=== PATIENT | male | born 1945 | race Caucasian/White ===

== ENCOUNTER 2016-12-07 20:58 | Observation (INO) | payer MEDICARE ==
[~2016-12-07] VITALS: Ht 167.6 cm; Wt 72.9 kg
[~2016-12-07 20:58] MED LIST: ASPI-664 PO; ATEN50TA PO; BENA20TA65 PO; COLC0.6T6 PO; GLIM2TAB PO; GLYB5TAB3 PO; HYDR12.58 PO; MTF1000T PO; PANT40TA3 PO; PERCOCET PO; ROSU20TA PO; SITA100T8 PO
[2016-12-08] VITALS (11 sets, daily range): BP systolic 129–166; BP diastolic 62–79; PULSE 40–55; RESP 16–21; TEMP 97.5; Ht 167.6 cm; Wt 72.9 kg
[2016-12-08] MEDS ORDERED: morphine 4 MG/ML VIAL IV STA (00:31)
[2016-12-08] MEDS ORDERED: ONDANSETRON 4 MG INJ IV STA (00:31)
[2016-12-08] MEDS ORDERED: ASPIRIN 325 MG TAB PO STA (00:31)
[2016-12-08 01:25] LABS: BASOPHIL # 0.1 10^3/ul (0.0-0.1); BASOPHILS % 0.7 % (0.0-2.0); EOSINOPHILS # 0.8 10^3/ul (0.0-0.5); EOSINOPHILS % 11.2 % (0.0-7.0); HEMATOCRIT 32.4 % (42.0-52.0); LYMPHOCYTES # 2.1 10^3/ul (0.8-2.9); LYMPHOCYTES % 30.9 % (15.0-51.0); MEAN CORPUSCULAR HEMOGLOBIN 31.3 pg (29.0-33.0); MEAN PLATELET VOLUME 11.5 fl (7.4-10.4); MONOCYTE # 0.8 10^3/ul (0.3-0.9); MONOCYTES % 12.1 % (0.0-11.0); NEUTROPHILS % 44.7 % (39.0-77.0); PLATELET COUNT 187 10^3/UL (140-415); RED BLOOD COUNT 3.52 10^6/ul (4.70-6.10); RED CELL DISTRIBUTION WIDTH 14.7 % (11.5-14.5); WHITE BLOOD COUNT 6.7 10^3/ul (4.8-10.8)
--- NOTE | 2016-12-08 01:34 | RADRPT ---
PROCEDURE: XR Chest. CLINICAL INDICATION: Chest pain. TECHNIQUE: 2 frontal views of the chest. COMPARISON: Plain film chest dated 01/23/2015. FINDINGS: Mild cardiomegaly. Mild elevation right hemidiaphragm. There is mild atelectasis at the right mid lung and lung base. The left lung is clear. The lungs are clear. No signs of pleural fluid or pneu mothorax are seen. The osseous structures and soft tissues are unremarkable. IMPRESSION: Mild atelectasis at the right mid lung and lung base. RPTAT: [facility] Physician Raven Date Time Electronically viewed and signed by Physician Raven on 12/08/2016 01:34 RS/
[2016-12-08 01:42] LABS: ALANINE AMINOTRANSFERASE 46 IU/L (13-69); ALBUMIN/GLOBULIN RATIO 1.29; ALKALINE PHOSPHATASE 74 IU/L (42-121); ANION GAP 21 (8-16); ASPARTATE AMINO TRANSFERASE 36 IU/L (15-46); BILIRUBIN,INDIRECT 0.7 mg/dl (0-1.1); BILIRUBIN,TOTAL 0.7 mg/dl (0.2-1.3); BLOOD UREA NITROGEN 24 mg/dl (7-20); CALCIUM 9.2 mg/dl (8.4-10.2); CARBON DIOXIDE 24 mmol/L (21-31); CHLORIDE 102 mmol/L (97-110); CREATININE 1.63 mg/dl (0.61-1.24); GLUCOSE 96 mg/dl (70-220); POTASSIUM 4.2 mmol/L (3.5-5.1); SODIUM 143 mmol/L (135-144); TOTAL PROTEIN 7.1 g/dl (6.1-8.1)
[2016-12-08 01:58] LABS: B-TYPE NATRIURETIC PEPTIDE 497 PG/ML (0-125)
[2016-12-08 02:00] LABS: TROPONIN-I < 0.012 ng/ml (0.00-0.12)
--- NOTE | 2016-12-08 03:41 | ERA ---
ER Documentation Chief Complaint Date/Time DATE: 12/08/16 TIME: 03:40 Chief Complaint CHEST PAIN RADIATES TO LEFT SHOULDER, COLD "CLAMMY" STARTED YESTERDAY HPI 71-year-old male with mid sternal chest pain that radiates to his left shoulder. It first started yesterday. Getting progressively worse. Less for 15 minutes. With associated diaphoresis. Pain mild to moderate intensity. No other current complaints. ROS All systems reviewed and are negative except as per history of present illness. Medications Home Meds Active Scripts Oxycodone Hcl/Acetaminophen (Percocet) 1 Tab Tab, 1 TAB PO Q6H Y for PAIN LEVEL 6-10, #20 TAB Prov:DEL DURHAM 01/26/15 Colchicine* (Colcrys*) 0.6 Mg Tablet, 0.6 MG PO BID for 3 Days, TAB Prov:DEL DURHAM 01/26/15 Reported Medications Hydrochlorothiazide* (Hydrochlorothiazide*) 12.5 Mg Tablet, 12.5 MG PO DAILY, TAB 01/23/15 Aspirin* (Aspirin* (EC)) 81 Mg Tablet.dr, 81 MG PO DAILY, TAB 01/23/15 Glyburide* (Glyburide*) 5 Mg Tablet, 5 MG PO DAILY, TAB 01/23/15 Glimepiride* (Glimepiride*) 2 Mg Tablet, 2 MG PO DAILY, TAB 01/23/15 Pantoprazole* (Protonix*) 40 Mg Tablet.dr, 40 MG PO DAILY, TAB 01/23/15 Metformin* (Glucophage*) 1,000 Mg Tablet, 1000 MG PO BID, TAB 01/23/15 Benazepril Hcl* (Lotensin*) 20 Mg Tablet, 20 MG PO DAILY, TAB 01/23/15 Atenolol* (Atenolol*) 50 Mg Tablet, 50 MG PO DAILY, TAB 01/23/15 Sitagliptin* (Januvia*) 100 Mg Tablet, 100 MG PO DAILY 02/26/13 Rosuvastatin Calcium* (Crestor*) 20 Mg Tablet, 20 MG PO DAILY 02/26/13 Allergies Allergies: Coded Allergies: No Known Allergy (Unverified , 01/23/15) PMhx/Soc History of Surgery: Yes (Knee/shld sx) Anesthesia Reaction: No Hx Neurological Disorder: No Hx Respiratory Disorders: No Hx Cardiac Disorders: Yes (HTN) Hx Psychiatric Problems: No Hx Miscellaneous Medical Probl: Yes (HTN, DM, HLD, CAD) Hx Alcohol Use: No Hx Substance Use: No Hx Tobacco Use: No Smoking Status: Never smoker Physical Exam Vitals Vital Signs Date Time Temp Pulse Resp B/P Pulse Ox O2 Delivery O2 Flow Rate FiO2 12/08/16 02:48 97.5 85 18 141/70 96 12/07/16 22:33 97.5 54 17 148/68 96 Physical Exam Const: [] Head: Atraumatic Eyes: Normal Conjunctiva ENT: Normal External Ears, Nose and Mouth. Neck: Full range of motion..~ No meningismus. Resp: Clear to auscultation bilaterally Cardio: Regular rate and rhythm, no murmurs Abd: Soft, non tender, non distended. Normal bowel sounds Skin: No petechiae or rashes Back: No midline or flank tenderness Ext: No cyanosis, or edema Neur: Awake and alert Psych: Normal Mood and Affect Result Diagram: 12/08/169912/08/16 010 Results 24 hrs Laboratory Tests Test 12/08/16 01:00 White Blood Count 6.710^3/ul Red Blood Count 3.5210^6/ul Hemoglobin 11.0g/dl Hematocrit 32.4% Mean Corpuscular Volume 92.0fl Mean Corpuscular Hemoglobin 31.3pg Mean Corpuscular Hemoglobin Concent 34.0g/dl Red Cell Distribution Width 14.7% Platelet Count 57020^3/UL Mean Platelet Volume 11.5fl Neutrophils % 44.7% Lymphocytes % 30.9% Monocytes % 12.1% Eosinophils % 11.2% Basophils % 0.7% Nucleated Red Blood Cells % 0.0/100WBC Neutrophils # (Manual) 3.010^3/ul Lymphocytes # 2.110^3/ul Monocytes # 0.810^3/ul Eosinophils # 0.810^3/ul Basophils # 0.110^3/ul Nucleated Red Blood Cells # 0.010^3/ul Sodium Level 143mmol/L Potassium Level 4.2mmol/L Chloride Level 102mmol/L Carbon Dioxide Level 24mmol/L Anion Gap 21 Blood Urea Nitrogen 24mg/dl Creatinine 1.63mg/dl Glucose Level 96mg/dl Calcium Level 9.2mg/dl Total Bilirubin 0.7mg/dl Direct Bilirubin 0.00mg/dl Indirect Bilirubin 0.7mg/dl Aspartate Amino Transf (AST/SGOT) 36IU/L Alanine Aminotransferase (ALT/SGPT) 46IU/L Alkaline Phosphatase 74IU/L Troponin I < 0.012ng/ml B-Type Natriuretic Peptide 497PG/ML Total Protein 7.1g/dl Albumin 4.0g/dl Globulin 3.10g/dl Albumin/Globulin Ratio 1.29 Current Medications Medications (Trade) Dose Ordered Sig/Bassam Route PRN Reason Start Time Stop Time Status Last Admin Dose Admin Aspirin (Aspirin) 325 mg ONCE STAT PO 12/08/16 00:31 12/08/16 00:32 DC 12/08/16 01:02 Morphine Sulfate (morphine) 4 mg ONCE STAT IV 12/08/16 00:31 12/08/16 00:32 DC 12/08/16 01:01 Ondansetron HCl (Zofran Inj) 4 mg ONCE STAT IV 12/08/16 00:31 12/08/16 00:32 DC 12/08/16 01:01 Procedures/MDM EKG: Rate/Rhythm: Normal Sinus Rhythm QRS, ST, T-waves: No changes consistent w/ acute ischemia Impression: No evidence of ischemia or arrhythmia Chest X-ray 1V Interpreted by me: Soft Tissue: No acute abnormalities Bones: No acute abnormalities Mediastinum/Cardiac Silhouette/Lungs: No acute abnormalities Patient's symptoms are concerning for cardiac cause will require inpatient workup and continuous monitoring. Further w/u for ischemia, arrhythmia, PE or dissection will be deferred to the inpatient team. Accepting Care Team: Current data and ongoing care discussed. Time: 3:30 AM Primary Provider: Hospitalist Consulting: [XOXOXO] Outstanding Data: none Departure Diagnosis: Primary Impression: Chest pain Qualified Code: R07.9 - Chest pain, unspecified type Condition: Serious MALGORZATA LLOYD Dec 08, 2016 03:41
[2016-12-08] MEDS ORDERED: VIT1TAB.6 PO (05:02)
[2016-12-08] MEDS ORDERED: VITA1CAP PO (05:02)
[2016-12-08] MEDS ORDERED: CHOL100062 PO (05:09)
[2016-12-08] MEDS ORDERED: SOD CHLORIDE 0.9% 1,000 ML IV SCH (06:40)
[2016-12-08] MEDS ORDERED: morphine 2 MG INJ IV PRN (07:00)
[2016-12-08] MEDS ORDERED: ONDANSETRON 4 MG INJ IV PRN (07:00)
[2016-12-08] MEDS ORDERED: NACL 0.9% 3 ML SYG IV SCH (07:00)
[2016-12-08] MEDS ORDERED: NITROGLYCERIN (SL) 0.4 MG TAB SL PRN (07:00)
[2016-12-08] MEDS ORDERED: ACETAMINOPHEN 325 MG TAB PO PRN (07:00)
[2016-12-08] MEDS: INSULIN ASPART [NOVOLOG] 3 ML PEN SC SCH ×4 (08:00→21:00)
[2016-12-08] MEDS ORDERED: GLUCOSE GEL 15 GRAM TUBE BUCCAL PRN (08:30)
[2016-12-08] MEDS ORDERED: DEXTROSE 50% 50 ML SYRINGE IV PRN ×2 (08:30)
[2016-12-08] MEDS ORDERED: GLUCOSE GEL 15 GRAM TUBE PO PRN ×2 (08:30)
[2016-12-08] MEDS ORDERED: GLUCAGON 1 MG INJ IM PRN (08:30)
[2016-12-08] MEDS: HEPARIN 5,000 UNIT/0.5 ML VIAL SC SCH ×2 (09:00→21:21)
[2016-12-08] MEDS: ATENOLOL 50 MG TAB PO SCH (09:00)
--- NOTE | 2016-12-08 09:46 | HP ---
Date/Time of Note Date/Time of Note DATE: 12/08/16 TIME: 09:41 Assessment/Plan VTE Prophylaxis VTE Prophylaxis Intervention: heparin Lines/Catheters IV Catheter Type (from Nrsg): Saline Lock Assessment/Plan Assessment/Plan 1. Chest pain, rule out ACS -Supplemental oxygen, beta-cresencio, statin, as needed nitro and morphine -2D echo and a cardiology consult 2. History of CAD with stent -See #1 3. History of hypertension -Continue antihypertensives with adjustment as needed 4. Type 2 diabetes -Insulin while in house with adjustment as needed -Check A1c 5. Presumed acute kidney injury -IV fluid -Nephrology consult HPI/ROS Admit Date/Time Admit Date/Time Dec 08, 2016 at 03:36 Hx of Present Illness This is a 71-year-old male with past medical history of coronary artery disease status post stent in 2012, hypertension, diabetes, hyperlipidemia, who came to [facility] secondary to complaints of chest pain. Pain is midsternal and slightly left-sided and has been going on for over 10 days. Denied shortness of breath, nausea, vomiting or diaphoresis. When he presented to the ER, BP 148/68 with a heart rate of 54. First troponin is negative and EKG was no ST-T wave abnormality. PMH/Family/Social Social History Smoking Status: Never smoker Exam/Review of Systems Vital Signs Vitals Vital Signs Date Time Temp Pulse Resp B/P Pulse Ox O2 Delivery O2 Flow Rate FiO2 12/08/16 09:12 48 12/08/16 06:51 97.5 20 126/72 100 Room Air Exam Constitutional: alert, oriented, well developed Head: atraumatic, normocephalic Eyes: EOMI, PERRL Respiratory: clear to auscultation, normal air movement Cardiovascular: other (Bradycardic with regular rhythm) Gastrointestinal: non-tender, soft Extremities: normal pulses Labs Result Diagram: 12/08/16 0100 12/08/16 0100 Medications Medications Current Medications Sodium Chloride (NS) 1,000 ml @ 100 mls/hr Q10H IV ; Start 12/08/16 at 06:40; Stop 12/08/16 at 23:00 Ondansetron HCl (Zofran Inj) 4 mg Q6H PRN IV NAUSEA AND/OR VOMITING; Start at 07:00 Aspirin (Aspirin) 81 mg DAILY PO ; Start 12/08/16 at 09:00 Nitroglycerin (Nitroglycerin (Sl Tab) 0.4 Mg) 1 tab Q5M PRN SL CHEST PAIN; Start 12/08/16 at 07:00 Acetaminophen (Tylenol Tab) 650 mg Q6H PRN PO PAIN LEVEL 1-3 OR FEVER; Start at 07:00 Morphine Sulfate (morphine) 2 mg Q4H PRN IV PAIN LEVEL 7-10; Start 12/08/16 at 07:00 Heparin Sodium (Porcine) (Heparin (5000 Units/0.5 ml)) 5,000 unit Q12 SC ; Start 12/08/16 at 09:00 Diagnostic Test (Pha) (Accu-Chek) 1 ea 02 XX ; Start 12/09/16 at 02:00 Atenolol (Tenormin) 50 mg DAILY PO ; Start 12/08/16 at 09:00 Benazepril HCl (Lotensin) 20 mg DAILY PO ; Start 12/08/16 at 09:00 Cholecalciferol (Vitamin D) 1,000 unit DAILY PO ; Start 12/08/16 at 09:00 Pantoprazole (Protonix Tab) 40 mg DAILY PO ; Start 12/08/16 at 09:00 Atorvastatin Calcium (Lipitor) 80 mg DAILY@21 PO ; Start 12/08/16 at 21:00 Linagliptin (Tradjenta) 5 mg DAILY PO ; Start 12/08/16 at 09:00 Miscellaneous Information 1 ea NOTE XX ; Start 12/08/16 at 08:30 Glucose (Glutose) 15 gm Q15M PRN PO DECREASED GLUCOSE; Start 12/08/16 at 08:30 Glucose (Glutose) 22.5 gm Q15M PRN PO DECREASED GLUCOSE; Start 12/08/16 at 08: 30 Dextrose (D50w Syringe) 25 ml Q15M PRN IV DECREASED GLUCOSE; Start 12/08/16 at 08:30 Dextrose (D50w Syringe) 50 ml Q15M PRN IV DECREASED GLUCOSE; Start 12/08/16 at 08:30 Glucagon (Glucagen) 1 mg Q15M PRN IM DECREASED GLUCOSE; Start 12/08/16 at 08:30 Glucose (Glutose) 15 gm Q15M PRN BUCCAL DECREASED GLUCOSE; Start 8/29/17 at 08 :30 MALGORZATA CONTRERAS MD Dec 08, 2016 09:46
[2016-12-08] MEDS: PANTOPRAZOLE (EC) 40 MG TAB PO SCH (10:02)
[2016-12-08] MEDS: LINAGLIPTIN 5 MG TABLET PO SCH (10:02)
[2016-12-08] MEDS: ASPIRIN 81 MG TAB PO SCH (10:02)
[2016-12-08] MEDS: CHOLECALCIFEROL 1,000 UNIT TAB PO SCH (10:02)
[2016-12-08] MEDS: BENAZEPRIL 20 MG TAB PO SCH (10:05)
--- NOTE | 2016-12-08 11:16 | CONS ---
DATE OF ADMISSION: 12/08/2016 DATE OF CONSULTATION: 12/08/2016 REASON FOR CONSULTATION: Renal insufficiency, possible acute kidney injury. REQUESTING PHYSICIAN: Manny Hood MD HISTORY OF PRESENT ILLNESS: This is a 71-year-old male with a past medical history of diabetes, history of hypertension, history of coronary artery disease, dyslipidemia, who presents to [facility] with complaints of pain, chest pain radiating to his shoulder. The patient stated that his symptoms started yesterday with pain radiating to his shoulder, progressively has gotten worse. As a result, he came to the emergency room. Upon arrival to the emergency room, the patient had laboratory data drawn which showed BUN of 24, creatinine 1.63. The patient had EKG which showed normal sinus rhythm. The patient, in the emergency room, was given aspirin, morphine, admitted to telemetry for evaluation. In terms of patient's renal history, per patient he has no prior history of chronic kidney disease. The patient's previous creatinine from 2 years ago was around 1.15 mg/dL. The patient does take a diuretic in outpatient setting and does take an ETHAN inhibitor. Denies any rashes, hemoptysis, hematemesis, hematochezia. PAST MEDICAL HISTORY: As stated above. History of coronary artery disease, hypertension, dyslipidemia, diabetes. PAST SURGICAL HISTORY: None. ALLERGIES: NO KNOWN DRUG ALLERGIES. FAMILY HISTORY: Noncontributory. SOCIAL HISTORY: Does not drink, smoke, or do drugs. MEDICATION: Reviewed. REVIEW OF SYSTEMS: Fourteen point review of systems conducted. Pertinent positives in HPI, otherwise negative. PHYSICAL EXAMINATION: VITAL SIGNS: Blood pressure 126/72, respirations 20, pulse 49, temperature 97.5. HEENT: Head is normocephalic. NECK: Supple. HEART: Regular rate. LUNGS: Show diminished breath sounds at the base. ABDOMEN: Soft, nontender to palpation. No rebound or guarding. EXTREMITIES: Negative for clubbing, cyanosis. No edema. DERMATOLOGIC: Clean. No rashes. MUSCULOSKELETAL: No joint effusion. NEUROLOGIC: No change in exam. LABORATORY: Shows a white count 6.7, hemoglobin 9.0, hematocrit 32.5, platelet count is 187. Sodium 143, potassium 4.2, BUN 24, creatinine 1.63. IMPRESSION AND PLAN: This is a 71-year-old male who presents with: 1. Renal insufficiency, possible acute kidney injury versus chronic kidney disease versus possible acute on chronic kidney disease. Etiology is unclear, possibly related to ETHAN inhibitor and hydrochlorothiazide. Plan at this point is to do a full evaluation. Will check UA with microanalysis. Check urine lytes. Will check a renal ultrasound. Would recommend to hold ETHAN inhibitor and diuretic therapy at this time. The patient is receiving gentle intravenous hydration. Will continue to monitor. Otherwise continue supportive care. Renally dose meds. Avoid nephrotoxins. 2. Mineral bone disorder. Will monitor calcium and phosphorus levels. 3. Mild anemia. Monitor H and H levels. 4. Chest pain. Patient is being ruled out for acute coronary syndrome. Continue to check serial troponins and monitor. 5. Diabetes. Continue Accu-Cheks and sliding scale. 6. Dyslipidemia. Continue statin therapy. 7. Hypertension. Continue current blood pressure regimen. Thank you, Dr. Hood, for this interesting consult. It will be a pleasure to follow the patient with you throughout the hospital course. Dictated By: Guero Slater DO /deonte/porsche /Document#: [id number]
[2016-12-08 11:38] LABS: CREATINE KINASE 399 IU/L (23-200)
[2016-12-08 12:00] LABS: TROPONIN-I < 0.012 ng/ml (0.00-0.12)
[2016-12-08 12:01] LABS: CK-MB 4.78 ng/ml (0.0-2.4)
--- NOTE | 2016-12-08 13:04 | CONS ---
DATE OF ADMISSION: 12/08/2016 DATE OF CONSULTATION: 12/08/2016 REFERRING PHYSICIAN: Dr. Hood. REASON FOR CONSULTATION: Chest pain. HISTORY OF PRESENT ILLNESS: Mr. Meyers is a 71-year-old gentleman, former patient of Dr. Putnam, who has a history of hypertension, dyslipidemia, longstanding diabetes, history of coronary artery disease, with prior drug-eluting stenting about 3 years ago, here at [facility], who comes to the hospital now for evaluation of chest pain. The patient said that the chest pain started yesterday. It has been on and off for several days. He did not tell anything to his family, but when the chest pain became more severe, the family actually brought him to the hospital for further evaluation. Patient's EKG shows sinus bradycardia with some nonspecific ST-T changes. There is no evidence of ischemia on EKG currently. He already had an evaluation with rule out troponin protocol. Essentially troponins are negative. Patient does have multiple risks for coronary artery disease, as well as prior history of stenting. For now, conservative therapy will be expected and the patient will have re-stratification with a stress test tomorrow. We will schedule Lexiscan tomorrow. We will monitor his bradycardia. PAST MEDICAL HISTORY: Hypertension, dyslipidemia, history of diabetes, history of drug-eluting stenting in 2012, history of renal insufficiency. ALLERGIES: NO KNOWN DRUG ALLERGIES. SOCIAL HISTORY: Does not smoke. Does not drink. Does not use any drugs. FAMILY HISTORY: Negative for sudden cardiac or premature coronary artery disease. MEDICATION: Here include: 1. Aspirin 81 mg a day. 2. Subcu heparin for DVT prophylaxis. 3. Atenolol 50 mg p.o. once a day. 4. Benazepril 20 mg once a day. 5. Calcitrol. 6. Propanolol. 7. Insulin on a sliding scale. 8. Ondansetron. 9. Sodium chloride. REVIEW OF SYSTEMS: There is no fevers, no chills. No recent weight changes. HEENT: No changes to vision or hearing. CARDIOVASCULAR: No chest pain is reported now. Bradycardia. RESPIRATORY: Shortness of breath. GASTROINTESTINAL: No nausea, vomiting, dysphagia. GENITOURINARY: No dysuria, hematuria. NEUROLOGIC: No focal neurologic deficits. HEMATOLOGIC: . PSYCHIATRIC: No history of psychiatric illness. PHYSICAL EXAMINATION: VITAL SIGNS: Temperature is 97.5, heart rate is 48, blood pressure 126/72. GENERAL APPEARANCE: He is well-nourished gentleman, in no acute distress, alert and oriented x3, speaking Yi. HEENT: Head is normocephalic, atraumatic. Extraocular muscles intact. NECK: Supple. JVD 6-7 cm. There is no lymphadenopathy or thyromegaly. CARDIAC: Regular. Soft 1/6 systolic murmur. Symmetrical chest rise. PMI nondisplaced. LUNGS: . ABDOMEN: Nondistended. Bowel sounds are present. There is no hepatosplenomegaly. EXTREMITIES: Show trace edema. LABORATORY: 1. Sodium 143, potassium 4.2, BUN 24, creatinine 0.6. The troponin is negative at 0.014. 2. EKG reviewed by me showed sinus bradycardia at a rate of 50s with nonspecific ST-T changes. IMPRESSION: 1. Precordial pain. Patient's precordial pain, possibly angina equivalent. Patient has extensive history of coronary artery disease. Lexiscan cardiac stress test will be facilitated for tomorrow. 2. Bradycardia. Patient has sinus bradycardia. He is on a fairly high dose of atenolol in the setting of acute renal failure. We will hold off on atenolol now and follow expectantly. 3. Acute renal failure. Continue to avoid nephrotoxic medications. Continue to monitor. Creatinine is elevated. Primary team follows. 4. History of drug-eluting stenting prior. Patient's medication now includes aspirin, but does not include Plavix. I will discuss with Dr. Giordano if he wants me to initiate Plavix now versus just give the patient aspirin at this point. 5. Congestive heart failure. Patient has history of heart failure, preserved ejection fraction. Continue to follow. I would like to thank, Dr. Hood, for referring this patient for my evaluation. Dictated By: Rory Tabares MD /deonte/alberta /Document#: [id number]
[2016-12-08 15:03] LABS: CREATINE KINASE 337 IU/L (23-200)
[2016-12-08 15:18] LABS: TROPONIN-I < 0.012 ng/ml (0.00-0.12)
--- NOTE | 2016-12-08 16:36 | RADRPT ---
PROCEDURE: Renal US. CLINICAL INDICATION: Acute kidney injury. TECHNIQUE: Multiple sonographic images of the kidneys and urinary bladder were obtained. The imag es were reviewed on a PACS workstation. COMPARISON: No prior studies are available for comparison. FINDINGS: The right kidney measures 9.6 x 4.2 x 4.6 cm. The left kidney measures 9.8 x 3.9 x 4.8 cm. There is no renal mass. There is no hydronephrosis. There is no renal calculus. Renal parenchymal thickness is normal bilaterally. Echogenicity is normal bilaterally. The perirenal regions are normal with no fluid collection or mass. The urinary bladder is empty. IMPRESSION: 1. Normal kidneys with no hydronephrosis. 2. Empty urinary bladder. 3. Otherwise unremarkable study. RPTAT: QQ .Fernando Sampson MD, Date Time Electronically viewed and signed by .Fernando Sampson MD, MD on 12/08/2016 16:36 .R/
[2016-12-08 19:28] LABS: ADD UMIC NO; UR ASCORBIC ACID NEGATIVE (NEGATIVE); UR BILIRUBIN (Dip) NEGATIVE (NEGATIVE); UR BLOOD (Dip) NEGATIVE (NEGATIVE); UR CLARITY CLEAR (CLEAR); UR COLOR STRAW (YELLOW); UR GLUCOSE (Dip) NEGATIVE (NEGATIVE); UR KETONES (Dip) NEGATIVE (NEGATIVE); UR LEUKOCYTE ESTERASE (Dip) NEGATIVE Leu/ul (NEGATIVE); UR NITRITE (Dip) NEGATIVE (NEGATIVE); UR SPECIFIC GRAVITY (Dip) 1.008 (1.003-1.030); UR TOTAL PROTEIN (Dip) NEGATIVE (NEGATIVE); UR UROBILINOGEN (Dip) NEGATIVE (NEGATIVE)
[2016-12-08] MEDS ORDERED: ATORVASTATIN 80 MG TAB PO SCH (21:00)
[2016-12-09] VITALS (8 sets, daily range): BP systolic 122–174; BP diastolic 58–76; PULSE 44–60; RESP 18
[2016-12-09] MEDS ORDERED: ACCU-CHEK XX SCH (02:00)
[2016-12-09] MEDS: INSULIN ASPART [NOVOLOG] 3 ML PEN SC SCH ×3 (07:39→17:55)
[2016-12-09] MEDS: ASPIRIN 81 MG TAB PO SCH (08:28)
[2016-12-09] MEDS: PANTOPRAZOLE (EC) 40 MG TAB PO SCH (08:28)
[2016-12-09] MEDS: CHOLECALCIFEROL 1,000 UNIT TAB PO SCH (08:28)
[2016-12-09] MEDS: LINAGLIPTIN 5 MG TABLET PO SCH (08:28)
[2016-12-09] MEDS: BENAZEPRIL 20 MG TAB PO SCH (08:29)
[2016-12-09] MEDS: ATENOLOL 50 MG TAB PO SCH (08:29)
[2016-12-09] MEDS: HEPARIN 5,000 UNIT/0.5 ML VIAL SC SCH (08:34)
[2016-12-09 08:42] LABS: BASOPHIL # 0.1 10^3/ul (0.0-0.1); BASOPHILS % 0.8 % (0.0-2.0); EOSINOPHILS # 0.8 10^3/ul (0.0-0.5); EOSINOPHILS % 9.9 % (0.0-7.0); HEMATOCRIT 39.4 % (42.0-52.0); HEMOGLOBIN 12.8 g/dl (14.0-18.0); LYMPHOCYTES # 2.2 10^3/ul (0.8-2.9); LYMPHOCYTES % 28.4 % (15.0-51.0); MEAN CORPUSCULAR HGB CONC 32.5 g/dl (32.0-37.0); MEAN CORPUSCULAR VOLUME 92.3 fl (82.0-101.0); MEAN PLATELET VOLUME 11.5 fl (7.4-10.4); MONOCYTE # 0.7 10^3/ul (0.3-0.9); MONOCYTES % 8.6 % (0.0-11.0); PLATELET COUNT 219 10^3/UL (140-415); RED BLOOD COUNT 4.27 10^6/ul (4.70-6.10); RED CELL DISTRIBUTION WIDTH 14.7 % (11.5-14.5); WHITE BLOOD COUNT 7.6 10^3/ul (4.8-10.8)
[2016-12-09 09:10] LABS: ALBUMIN 4.4 g/dl (3.3-4.9); ALBUMIN/GLOBULIN RATIO 1.29; BILIRUBIN,INDIRECT 0.8 mg/dl (0-1.1); BILIRUBIN,TOTAL 0.8 mg/dl (0.2-1.3); CALCIUM 9.4 mg/dl (8.4-10.2); CHOL/HDL RATIO 2.6 RATIO; CREATININE 1.45 mg/dl (0.61-1.24); MAGNESIUM 1.8 mg/dl (1.7-2.5); POTASSIUM 4.5 mmol/L (3.5-5.1); TOTAL PROTEIN 7.8 g/dl (6.1-8.1)
--- NOTE | 2016-12-09 11:06 | PN ---
DATE: 12/09/2016 SUBJECTIVE DATA: The patient is stable. No events overnight. No fevers, chills, nausea, vomiting. No shortness of breath. OBJECTIVE DATA: VITAL SIGNS: Blood pressure 174/76, respirations 18, pulse 51, temperature 97.8. HEENT: Head is normocephalic. NECK: Supple. HEART: Regular rate. LUNGS: Diminished breath sounds at the base. ABDOMEN: Soft, nontender to palpation. No rebound or guarding. EXTREMITIES: Negative for clubbing, cyanosis. No edema. DERMATOLOGIC: Clean. No rashes. MUSCULOSKELETAL: No joint effusion. NEUROLOGIC: No change in exam. MEDICATIONS: Reviewed. LABORATORY AND DIAGNOSTIC DATA: Shows sodium 145, potassium 4.5, chloride 100, BUN 23, creatinine 1.45. White count 7.6, hemoglobin 10.8, hematocrit of 39.4, platelet count 219,000. The patient's urinalysis shows a protein creatinine ratio approximately 500 mg/g creatinine greater than 1 percent. The patient's renal ultrasound shows normal kidneys, no evidence of hydronephrosis. ASSESSMENT AND PLAN: 1. Nonoliguric acute kidney injury with unknown baseline creatinine. Etiology of acute kidney injury is likely multifactorial secondary to ETHAN inhibitor effect, hydrochlorothiazide. The patient's urinalysis is bland. Does show 500 mg proteinuria; however, this is non glomerular. The patient's renal ultrasound normal study. At this point, renal function has slowly been improving with supportive care. Continue current treatment plan. Renally dose all medications. Avoid any ETHAN inhibitor, diuretics at this time. 2. Mineral bone disorder. Monitor calcium and phosphorus levels. 3. Anemia, continue to monitor hemoglobin and hematocrit levels. 4. Chest pain. Continue current medical management. The patient is pending a LexiScan. 5. Diabetes. Continue Accu-Cheks and insulin sliding scale. 6. Coronary artery disease. Continue statin therapy. 7. Hypertension. Continue current blood pressure regimen. Dictated By: Guero Slater DO /deonte/moiz /Document#: [id number]
[2016-12-09 11:44] LABS: THYROID STIMULATING HORMONE 2.92 MIU/L (0.465-4.680)
[2016-12-09] MEDS ORDERED: REGADENOSON 0.4 MG/5 ML SYG ONE (14:07)
--- NOTE | 2016-12-09 14:47 | CONS ---
Date/Time of Note Date/Time of Note DATE: 12/09/16 TIME: 14:41 Assessment/Plan Assessment/Plan Chief Complaint/Hosp Course IMP: 1.Chest pain 2.HTN 3.HL 4.DM Recc: -tele -serial ecg's -Continue statin -Continue BB and uptitrate acei to improve BP control -Follow BS clsoely -F/U ecjop -Lexiscan stress test today Problems: Consultation Date/Type/Reason Admit Date/Time Dec 08, 2016 at 03:36 Initial Consult Date 12/08/16 Type of Consultation: cardiology Reason for Consultation chest pain Exam/Review of Systems Vital Signs Vitals Vital Signs Date Time Temp Pulse Resp B/P Pulse Ox O2 Delivery O2 Flow Rate FiO2 12/09/16 12:42 45 12/09/16 12:12 98.4 18 150/74 96 12/08/16 08:00 Room Air Intake and Output 12/08/16 12/08/16 12/09/16 15:00 23:00 07:00 Intake Total 1000 ml 600 ml Output Total 1000 ml Balance 1000 ml -400 ml Exam Review of Systems: CONSTITUTIONAL: No fevers, chills. PULMONARY: No sob CARDIOVASCULAR: No chest pain/palpitations GASTROINTESTINAL: No nausea/vomiting. GENITOURINARY: No hematuria/dysuria. MUSCULOSKELETAL: No myagias/arthalgias. PSYCHIATRIC: The patient denies depression. NEUROLOGIC: No weakness Constitutional: alert, oriented Psych: no complaints ENMT: mucosa pink and moist Neck: jvd, supple Respiratory: diminished breath sounds (at base/B) Cardiovascular: regular rate and rhythm Gastrointestinal: non-tender, soft Musculoskeletal: muscle tone (normal) Extremities: edema (none) Neurological: other (None) Results Result Diagram: 12/09/16 0826 12/09/16 0826 Results 24 hrs Laboratory Tests Test 12/08/16 17:30 12/08/16 17:44 12/08/16 21:13 12/09/16 07:37 Urine Color STRAW Urine Clarity CLEAR Urine pH 7.0 Urine Specific [place] 1.008 Urine Ketones NEGATIVE Urine Nitrite NEGATIVE Urine Bilirubin NEGATIVE Urine Urobilinogen NEGATIVE Urine Leukocyte Esterase NEGATIVE Urine Hemoglobin NEGATIVE Urine Random Creatinine 36.65 Urine Random Sodium 72 Urine Glucose NEGATIVE Urine Total Protein 18.0 H Bedside Glucose 135 120 105 Test 12/09/16 08:26 12/09/16 12:07 White Blood Count 7.6 Red Blood Count 4.27 #L Hemoglobin 12.8 L Hematocrit 39.4 #L Mean Corpuscular Volume 92.3 Mean Corpuscular Hemoglobin 30.0 Mean Corpuscular Hemoglobin Concent 32.5 Red Cell Distribution Width 14.7 H Platelet Count 219 Mean Platelet Volume 11.5 H Neutrophils % 52.0 Lymphocytes % 28.4 Monocytes % 8.6 Eosinophils % 9.9 H Basophils % 0.8 Nucleated Red Blood Cells % 0.0 Neutrophils # (Manual) 3.9 Lymphocytes # 2.2 Monocytes # 0.7 Eosinophils # 0.8 H Basophils # 0.1 Nucleated Red Blood Cells # 0.0 Sodium Level 145 H Potassium Level 4.5 Chloride Level 100 Carbon Dioxide Level 28 Anion Gap 22 H Blood Urea Nitrogen 23 H Creatinine 1.45 H Glucose Level 108 Hemoglobin A1c 5.6 Calcium Level 9.4 Magnesium Level 1.8 Total Bilirubin 0.8 Direct Bilirubin 0.00 Indirect Bilirubin 0.8 Aspartate Amino Transf (AST/SGOT) 32 Alanine Aminotransferase (ALT/SGPT) 39 Alkaline Phosphatase 65 Total Protein 7.8 Albumin 4.4 Globulin 3.40 H Albumin/Globulin Ratio 1.29 Triglycerides Level 269 H Cholesterol Level 118 LDL Cholesterol, Calculated 20 HDL Cholesterol 44 Cholesterol/HDL Ratio 2.6 Thyroid Stimulating Hormone (TSH) 2.920 Bedside Glucose 99 Medications Medications Current Medications Ondansetron HCl (Zofran Inj) 4 mg Q6H PRN IV NAUSEA AND/OR VOMITING; Start at 07:00 Aspirin (Aspirin) 81 mg DAILY PO Last administered on 12/09/16 08:28; Admin Dose 81 MG; Start 12/08/16 at 09:00 Nitroglycerin (Nitroglycerin (Sl Tab) 0.4 Mg) 1 tab Q5M PRN SL CHEST PAIN; Start 12/08/16 at 07:00 Acetaminophen (Tylenol Tab) 650 mg Q6H PRN PO PAIN LEVEL 1-3 OR FEVER; Start at 07:00 Morphine Sulfate (morphine) 2 mg Q4H PRN IV PAIN LEVEL 7-10; Start 12/08/16 at 07:00 Heparin Sodium (Porcine) (Heparin (5000 Units/0.5 ml)) 5,000 unit Q12 SC Last administered on 12/09/16 08:34; Admin Dose 5,000 UNIT; Start 12/08/16 at 09:00 Diagnostic Test (Pha) (Accu-Chek) 1 ea 02 XX ; Start 12/09/16 at 02:00 Atenolol (Tenormin) 50 mg DAILY PO Last administered on 12/09/16 08:29; Admin Dose 50 MG; Start 12/08/16 at 09:00 Benazepril HCl (Lotensin) 20 mg DAILY PO Last administered on 12/09/16 08:29; Admin Dose 20 MG; Start 12/08/16 at 09:00 Cholecalciferol (Vitamin D) 1,000 unit DAILY PO Last administered on 12/09/16 08:28; Admin Dose 1,000 UNIT; Start 12/08/16 at 09:00 Pantoprazole (Protonix Tab) 40 mg DAILY PO Last administered on 12/09/16 08:28 ; Admin Dose 40 MG; Start 12/08/16 at 09:00 Atorvastatin Calcium (Lipitor) 80 mg DAILY@21 PO Last administered on 21:13; Admin Dose 80 MG; Start 12/08/16 at 21:00 Linagliptin (Tradjenta) 5 mg DAILY PO Last administered on 12/09/16 08:28; Admin Dose 5 MG; Start 12/08/16 at 09:00 Miscellaneous Information 1 ea NOTE XX ; Start 12/08/16 at 08:30 Glucose (Glutose) 15 gm Q15M PRN PO DECREASED GLUCOSE; Start 12/08/16 at 08:30 Glucose (Glutose) 22.5 gm Q15M PRN PO DECREASED GLUCOSE; Start 12/08/16 at 08: 30 Dextrose (D50w Syringe) 25 ml Q15M PRN IV DECREASED GLUCOSE; Start 12/08/16 at 08:30 Dextrose (D50w Syringe) 50 ml Q15M PRN IV DECREASED GLUCOSE; Start 12/08/16 at 08:30 Glucagon (Glucagen) 1 mg Q15M PRN IM DECREASED GLUCOSE; Start 12/08/16 at 08:30 Glucose (Glutose) 15 gm Q15M PRN BUCCAL DECREASED GLUCOSE; Start 12/08/16 at 08 :30 REMI PHILLIPS Dec 09, 2016 14:47
--- NOTE | 2016-12-09 16:15 | RADRPT ---
PROCEDURE: LEXISCAN MYOCARDIAL PERFUSION STUDY CLINICAL INDICATION: Chest pain TECHNIQUE: Lexiscan 0.4 mg intravenously separate acquisition, gated myocardial perfusion SPECT us ing 10 mCi intravenously at stress and 30 mCi intravenously at rest was performed using the rest/str ess sequence. Poststress SPECT images were obtained in the supine position. COMPARISON: None. FINDINGS: Perfusion images reveal fixed decreased activity in the anteroapical wall, extending to and most pro nounced at the apex. Perfusion images reveal no evidence of a reversible defect. Poststress gated SPECT images demonstrate no significant wall motion abnormalities IMPRESSION: 1. No evidence of reversible defects. 2. Fixed defect in the anteroapical wall, extending to and most conspicuous at the apex compatible w ith prior infarct. 3. No significant wall motion abnormalities. 4. The left ventricle ejection fraction at stress is 55% . RPTAT: HH Physician Solange Date Time Electronically viewed and signed by Physician Solange on 12/09/2016 16:15 /
[2016-12-09] MEDS ORDERED: ASPI81TA3 PO (17:06)
--- NOTE | 2016-12-09 17:06 | PDOCDIS ---
Discharge Instructions CONDITION Patient Condition: Good HOME CARE INSTRUCTIONS: Special Diet: CARB CONTROLLED ACTIVITY: Activity Restrictions: No Restrictions FOLLOW UP/APPOINTMENTS Follow-up Plan FOLLOW UP WITH YOUR PRIMARY CARE PHYSICIAN IN 1-2 WEEKS ISHAN BRANDON Dec 09, 2016 17:06
--- NOTE | 2016-12-10 05:50 | CARRPT ---
DATE OF PROCEDURE: 12/09/2016 REASON FOR STRESS TEST: Chest pain. Assess for ischemia. BASELINE VITAL SIGNS/ELECTROCARDIOGRAM: Pulse 47, blood pressure 168/77. Electrocardiogram revealed sinus bradycardia, rate 45, normal axis, normal intervals. Nonspecific ST throughout diffusely. PROCEDURE: The patient was standard Lexiscan infusion for 10 seconds over radiotracer. Patient's test was stopped due to completion of protocol. Maximal achieved blood pressure during the test 166/76. Maximum heart rate during test 59. ECG FINDINGS: He did not develop any new Lexiscan induced ST changes from baseline abnormalities. No documented PACs or PVCs. SYMPTOMS: The patient had mild complaints of nausea and headache. No chest pain or shortness of breath during stress test. IMPRESSION: 1. No Lexiscan induced ST-T wave changes from baseline abnormalities or diagnostic ischemia. 2. No complaints of chest pain or shortness of breath during stress test. 3. No documented premature ventricular contractions during stress test. 4. Report of nuclear images to follow in a separate dictation. Dictated By: Adiel Giordano MD /deonte/lucia /Document#: [id number] CC: Manny Hood MD;*EndCC*
[2016-12-10 14:12] LABS: MICROALBUMIN 4.9 mg/dL
--- NOTE | 2016-12-10 19:23 | DS ---
Date/Time of Note Date/Time of Note DATE: 12/10/16 TIME: 19:18 Discharge Summary Admission/Discharge Info Admit Date/Time Dec 08, 2016 at 03:36 Discharge Date/Time Dec 09, 2016 at 18:06 Discharge Diagnosis 1. Chest pain-ACS ruled out Nuclear stress test was negative continue home meds 2. History of CAD with stent-no acute issues Continue home meds 3. History of hypertension Continue antihypertensives 4. Type 2 diabetes A1c within normal limits, continue home meds 5. Acute kidney injury on likely CKD-improved Nephrology consult appreciated Hospital Course Patient is a 71-year-old male with past medical history of coronary artery disease status post stent in 2012, hypertension, diabetes, hyperlipidemia, who came to [facility] secondary to complaints of chest pain. Patient was seen by cardiology the patient had a nuclear stress test that was negative. ACS was ruled out also with negative troponins, patient had what appeared to be acute on chronic kidney disease with elevated creatinine that trended down during hospitalization. Patient was felt to be stable for DC and on the day of discharge patient's vitals, labs and physical exam are stable and no further acute complaints and no further chest pain and questions are answered. Home Meds Active Scripts Aspirin (Aspirin) 81 Mg Chew, 81 MG PO DAILY, #90 TAB 3 Refills Prov:ISHAN BRANDON 12/09/16 Reported Medications Cholecalciferol* (Vitamin D3*) 1,000 Unit Tablet, 1000 UNIT PO DAILY, TAB 12/08/16 Vitamin B Complex (Vitamin B Complex) 1 Each Capsule, 1 EACH PO, CAP 12/08/16 Vit B Complex & C No.19/FA/D3 (Nephronex-Sl Tablet) 1 Each Tab.rapdis, 1 EACH PO 12/08/16 Hydrochlorothiazide* (Hydrochlorothiazide*) 12.5 Mg Tablet, 12.5 MG PO DAILY, TAB 01/23/15 Glyburide* (Glyburide*) 5 Mg Tablet, 5 MG PO DAILY, TAB 01/23/15 Glimepiride* (Glimepiride*) 2 Mg Tablet, 2 MG PO DAILY, TAB 01/23/15 Pantoprazole* (Protonix*) 40 Mg Tablet.dr, 40 MG PO DAILY, TAB 01/23/15 Metformin* (Glucophage*) 1,000 Mg Tablet, 1000 MG PO BID, TAB 01/23/15 Benazepril Hcl* (Lotensin*) 20 Mg Tablet, 20 MG PO DAILY, TAB 01/23/15 Atenolol* (Atenolol*) 50 Mg Tablet, 50 MG PO DAILY, TAB 01/23/15 Sitagliptin* (Januvia*) 100 Mg Tablet, 100 MG PO DAILY 02/26/13 Rosuvastatin Calcium* (Crestor*) 20 Mg Tablet, 20 MG PO DAILY 02/26/13 Discontinued Reported Medications Aspirin* (Aspirin* (EC)) 81 Mg Tablet.dr, 81 MG PO DAILY, TAB 01/23/15 Discontinued Scripts Oxycodone Hcl/Acetaminophen (Percocet) 1 Tab Tab, 1 TAB PO Q6H Y for PAIN LEVEL 6-10, #20 TAB Prov:DEL DURHAM 01/26/15 Colchicine* (Colcrys*) 0.6 Mg Tablet, 0.6 MG PO BID for 3 Days, TAB Prov:DEL DURHAM 01/26/15 Follow-up Plan FOLLOW UP WITH YOUR PRIMARY CARE PHYSICIAN IN 1-2 WEEKS Primary Care Provider Jorje Hatfield MD Time spent on discharge: > 30 minutes ISHAN BRANDON Dec 10, 2016 19:23
== END 2016-12-09 18:06 | disposition home or self-care (01) ==
LOC: E/R 20:58 → TEL 12-08 03:36
PROVIDERS: ADMIT Internal Medicine; ATTEND Internal Medicine
DX: R07.9 Chest pain, unspecified (principal); I10 Essential (primary) hypertension; E11.9 Type 2 diabetes mellitus without complications; Z79.84 Long term (current) use of oral hypoglycemic drugs; E78.5 Hyperlipidemia, unspecified; I25.10 Atherosclerotic heart disease of native coronary artery without angina pectoris; Z95.5 Presence of coronary angioplasty implant and graft; N17.9 Acute kidney failure, unspecified; N28.9 Disorder of kidney and ureter, unspecified; M89.9 Disorder of bone, unspecified; D64.9 Anemia, unspecified; Z79.82 Long term (current) use of aspirin
CPT/HCPCS: 71010; 76775; 78452; 80053; 80061; 81003; 82043; 82550; 82553; 82962; 83036; 83735; 83880; 84155; 84300; 84443; 84484; 85025; 93005; 93017; 96374; 96375; 99285; A9500; A9505; G0378; J1644; J1815; J2270; J2405; J2785; J7030; 99217